=== PATIENT | male | born 1950 | race Caucasian/White ===

== ENCOUNTER 2019-11-19 18:12 | Observation (INO) | payer MEDICARE, OTHER, SELFPAY ==
--- NOTE | ~2019-11-19 | XR_ITS ---
EXAMINATION: XR hand LT min 3V INDICATION: Left hand pain TECHNIQUE: Three views of the left hand are obtained. COMPARISON: None available FINDINGS: There is a nail in the palmar soft tissues of the left hand. The entry point appears to be in the soft tissues between the first and second metacarpals. No definite fracture is identified. 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 IMPRESSION: 1. Nail in the palmar soft tissues of the left hand. No definite fracture identified. Reviewed, dictated and finalized at location A. IMPRESSION: 1. Nail in the palmar soft tissues of the left hand. No definite fracture ident ified.
--- NOTE | ~2019-11-19 | XR_ITS ---
XR surgery orthopedic 11/20/2019 08:45 Indication: Foreign body removal left hand. Procedure: 3 fluoroscopic images of the left hand. 53 seconds of fluoroscopy. Comparison: 11/19/2019 Findings: Interval removal of nail in the left hand. No acute underlying bone or joint abnormality. N o significant soft tissue abnormality. Impression: 1: No acute bone or joint abnormality following foreign body removal. Reviewed, dictated and finalized at location A. Impression: 1: No acute bone or joint abnormality following foreign body removal.
[2019-11-19 18:26] VITALS: BP 71/55; PULSE 56; RESP 18; TEMP 35.7; O2SAT 100
--- NOTE | 2019-11-19 19:39 | ED.UPPEXIN ---
HPI - Extremity Injury (Upper) General Chief Complaint: Extremity Injury, Upper Stated Complaint: L hand injury Time Seen by Provider: 11/19/19 19:38 Source: patient Mode of arrival: ambulatory Limitations: no limitations History of Present Illness HPI narrative: Patient is a 69-year-old male who presents for evaluation of left hand injury. Patient was attaching siding to his house with a nail gun, patient is right-hand dominant, was holding the nail with the right hand when release the nail into his left hand. Patient is denying any numbness. He reports pain in the left hand which is dull, aching in nature and worse with movement. He denies associated chest pain, palpitations, shortness of breath. He states he feels mildly nauseated. Related Data Allergies Allergy/AdvReac Type Severity Reaction Status Date / Time No Known Allergies Allergy Verified 11/19/19 18:43 Review of Systems Review of Systems: Narrative: CONSTITUTIONAL: Denies fever CARDIOVASCULAR: Denies chest pain RESPIRATORY: Denies cough or dyspnea. GASTROINTESTINAL: Denies abdominal pain, nausea, vomiting, or diarrhea. GENITOURINARY: Denies dysuria or hematuria. SKIN: Denies rash or itching. MUSCULOSKELETAL: Denies back pain, reports left hand pain and nail gun injury NEUROLOGIC: Denies headache, numbness, or weakness. [facility] Past Medical History Medical History Gastrocnemius tear Surgical History Surgical History (Updated 11/19/19 @ 19:58 by Susan Chapin MD) S/P Mohs surgery for basal cell carcinoma Social History Social History Smoking status: Current every day smoker Alcohol intake: current Gender identity (if verbalized by the patient): Male Exam Narrative: Exam Narrative: GENERAL: Awake, alert, conversant HEAD: Normocephalic, atraumatic. EYES: PERRLA and EOMI. ENT: Nares clear, no rhinorrhea or epistaxis. Mucous membranes moist. NECK: Supple. CHEST: No respiratory distress, breathing even and non labored HEART: Regular rate, sinus rhythm ABDOMEN:Non distended, non tender EXTREMITIES: Decreased range of motion in the left hand due to pain. Intact sensation median, ulnar, radial nerve distribution. Capillary refill less than 3 seconds. Radial pulses 2+. Patient has full range of motion of the digits without deficit. Pain is with palpation of the dorsal and volar aspect of the left hand. There is a entry defect between the thumb and second digit. No foreign body identified with palpation of this. SKIN: Warm, dry, no rash. NEURO:No focal deficits. Alert and oriented x3 Course Vital Signs Vital signs: Vital Signs Temperature 35.7 C L 11/19/19 18:26 Pulse Rate 56 L 11/19/19 18:26 Respiratory Rate 18 11/19/19 18:26 Blood Pressure 71/55 L 11/19/19 18:26 Pulse Oximetry 100 11/19/19 18:26 Temperature 35.7 C L 11/19/19 18:26 Pulse Rate 68 11/19/19 21:28 Respiratory Rate 16 11/19/19 21:28 Blood Pressure 158/88 H 11/19/19 21:28 Pulse Oximetry 99 11/19/19 21:28 MDM - Extremity Injury (Upper) MDM Narrative Medical decision making narrative: Pt initial vital signs in triage notable for hypotension, but perhaps this is inaccurate as pt is hypertensive at time of my assessment. Denies any chest pain, dizziness. Reports nausea with the pain in left hand. Patient neurovascularly intact at the time of assessment. There is an entry wound defect in the left hand. Nail is resting transversely over the metacarpals in a volar distribution. I am unable to access nail head from entry point. Patient given Ancef, tetanus update, pain medication. Dr. Merrill consulted, will take patient to the OR in the morning. I did obtain labs and EKG for preop. No acute ischemic changes on EKG. Mild leukocytosis likely secondary to pain/leukemoid reaction. Cr mildly increased, no previous available. Patient will be kept
[2019-11-19 19:57] VITALS: BP 109/66; PULSE 66; RESP 16; O2SAT 98
[2019-11-19] MEDS: ONDANSETRON INJ 4 MG/2 ML VIAL IV PUSH (20:02)
[2019-11-19] MEDS: MORPHINE SULFATE (*CRX) 4 MG/ML INJ IV PUSH ×2 (20:03→20:55)
[2019-11-19] MEDS: TETANUS,DIPHTHERIA,AC PERTUSSIS ADULT (0.5 ML) BOOSTRIX IM (20:04)
--- NOTE | 2019-11-19 20:26 | ECG_ITS ---
Measurements Intervals [place] Rate: 72 P: 29 PA: 183 QRS: -24 QRSD: 93 T: 20 QT: 392 QTc: 430 Interpretive Statements SINUS RHYTHM RSR' IN V1 OR V2, CONSIDER RIGHT VENTRICULAR HYPERTROPHY OR RIGHT VCD VOLTAGE CRITERIA FOR LVH MINIMAL Q WAVES- HIGH LATERAL LEADS BASELINE ARTIFACT- I, II, AVR BORDERLINE ECG Electronically Signed On 11-20-2019 7:28:58 CDT by Carrington Toribio D.O.
[2019-11-19 20:47] LABS: Basophils Percent Auto 0.3 % (0.2-1.2); Eosinophils Absolute Auto 0.1 K/mm3 (0-0.3); Eosinophils Percent Auto 0.8 % (0-4.4); Hematocrit 43.9 % (42.0-52.0); Hemoglobin 14.5 g/dL (14.0-18.0); Immature Granulocyte Absolute 0.04 K/mm3 (0.00-0.031); Immature Granulocyte Percent A 0.3 % (0-0.5); Lymphocytes Absolute Auto 0.89 K/mm3 (0.9-3.2); Lymphocytes Percent Auto 7.5 % (18.3-44.2); Mean Corpuscular Hemoglobin 31.7 pg (26-34); Mean Corpuscular Volume 96.1 fl (80-100); Mean Platelet Volume 9.7 fl (7.4-10.4); Monocytes Absolute Auto 0.8 K/mm3 (0.1-0.6); Monocytes Percent Auto 6.7 % (2.6-8.5); Neutrophils Percent Auto 84.4 % (45.5-73.1); Platelet Count Result 277 k/mm3 (150-375); Red Blood Count 4.57 M/mm3 (4.6-6.20); Red Cell Distribution Width 13.2 % (11.5-14.5); White Blood Count 11.8 K/mm3 (4.5-10.0)
[2019-11-19] MEDS: oxyCODONE HCL (*CRX) 5 MG TAB IR PO (20:49)
[2019-11-19 20:57] LABS: Prothrombin Time 12.5 Seconds (11.1-14.7)
[2019-11-19 20:59] LABS: Anion Gap 7 mmol/L (8-16); Blood Urea Nitrogen 20 mg/dL (9-20); Calcium 9.5 mg/dL (8.4-10.2); Carbon Dioxide 26 mmol/L (22-30); Chloride 105 mmol/L (98-107); Estimated CRCL calculation 56 ml/min; Estimated Glomerular Filt Rate 50; Glucose 111 mg/dL (75-110); Potassium 3.8 mmol/L (3.4-5.0); Sodium 138 mmol/L (137-145)
[2019-11-19 21:28] VITALS: BP 158/88; PULSE 68; RESP 16; O2SAT 99
[2019-11-19 21:30] VITALS: BP 161/80; PULSE 78; RESP 16; TEMP 37.1; O2SAT 100; BMI 32.2
--- NOTE | 2019-11-19 21:30 | ADMGEN ---
This patient, Kush Abreu, was admitted to 3 [facility] Surg Room 303-01. Patient/family oriented to hospital policies and general routines including ID bracelet, bed and alarms, visiting hours, pain management, procedures, bathroom and other care routines, personal items, smoking policy, room service/diet, and visiting hours. Valuables list has been completed. Information on how to activate the Rapid Response Team has been discussed. Patient/Family are encouraged to report perceived risks to care and to ask questions if they do not understand what they are told or what they should do.
[2019-11-19] MEDS: SODIUM CHLORIDE 0.9% IV 1,000 ML 125 ML IV CONT (22:36)
[2019-11-20] VITALS (10 sets, daily range): BP systolic 150–169; BP diastolic 75–95; PULSE 58–83; RESP 12–20; TEMP 36.1–37.1; O2SAT 95–100
--- NOTE | 2019-11-20 07:15 | PM.IMHP ---
H&P: HPI History of Present Illness Date/Time: 11/20/19 07:15 Chief complaint: Nail gun injury left hand, Foreign body Narrative: Kush Abreu is a 69 year old right-hand dominant male who presents with a left hand injury. He was attaching a slide to his house with a nail gun at which time he started fall and a nail shot out of the gun went caught across to his left palmar aspect entering from radial to ulnar. Immediately noted the could see the end of it and proceeded to the emergency room for evaluation. Emergency room radiographs were taken. Findings: IMPRESSION: 1. Nail in the palmar soft tissues of the left hand. No definite fracture identified. We have monitored until operating room is available. He states doing well. No complaints. No fevers or chills. No nausea vomiting. Normal sensation in the digits. He is able to move the hand however has significant pain with any motion. He states he has felt well recently. No COVID-19 symptoms. Review of Systems Review of Systems: All systems reviewed & are unremarkable except as noted in HPI and below PMFSH Past Medical History Medical History Gastrocnemius tear Surgical History Surgical History (Updated 11/19/19 @ 19:58 by Susan Chapin MD) S/P Mohs surgery for basal cell carcinoma Social History Social History Smoking packs per day: 1 Smoking cigarettes per day: 20.0 Years smoked: 20 Smoking pack-years: 20.00 Smoking status: Former smoker Tobacco type: cigarettes Alcohol intake: current Drinks per week: 1 Substance use: never Gender identity (if verbalized by the patient): Male Spiritual care concerns: No Meds Home Medications and Allergies Home Medications Medication Instructions Recorded Confirmed Type diclofenac sodium 75 mg PO BID PRN 11/19/19 11/19/19 History lisinopril 5 mg PO DAILY 11/19/19 11/19/19 History omeprazole 40 mg PO BID 11/19/19 11/19/19 History simvastatin 20 mg PO HS 11/19/19 11/19/19 History Allergies Allergy/AdvReac Type Severity Reaction Status Date / Time No Known Allergies Allergy Verified 11/19/19 18:43 Vital Signs Vital Signs - 24 hr 11/19/19 18:26 11/19/19 19:57 11/19/19 21:28 Temperature 35.7 C L Pulse Rate 56 L 66 68 Respiratory Rate 18 16 16 Blood Pressure 71/55 L 109/66 158/88 H Pulse Oximetry 100 98 99 11/19/19 21:30 11/20/19 06:00 Temperature 37.1 C 37.1 C Pulse Rate 78 77 Respiratory Rate 16 16 Blood Pressure 161/80 H 166/92 H Pulse Oximetry 100 99 Exam Const: General: comfortable, no acute distress, alert and awake; No acute distress Orientation/consciousness: oriented to person HENMT: Head: normal to inspection Ears: external ears normal General nose exam: Normal external nose present Face and sinus: normal facial exam Eyes: General: appearance normal, both eyes and all related structures Periorbital: periorbital findings normal Eyelids: eyelids normal Conjunctivae: conjunctivae normal Neck: Neck: normal visual inspection Chest: Chest palpation & inspection: normal inspection of the chest Resp: Effort & Inspection: normal respiratory effort and able to speak in complete sentences GI: Inspection: normal to inspection Neuro: General: oriented to person Extrem: Other: Left volar radial hand with clear entry point. He has normal sensation on the radial and ulnar aspect of each digit. He is able to flex and extend the PIP and DIP joints. No signs of infection. Good color and capillary refill. Otherwise normal hand examination. Psych: Appearance: grossly normal Mental Status: mental status grossly normal H&P: Results Labs Labs: Short CBC 11/19/19 Range/Units 20:41 WBC 11.8 H (4.5-10.0) K/mm3 Hgb 14.5 (14.0-18.0) g/dL Hct 43.9 (42.0-52.0) % Plt Count 277 (150-375) k/mm3 [facility] 11/19/19 20:41
--- NOTE | 2019-11-20 07:23 | WPDHPUPDATE1 ---
History and Physical Update Update Date/Time: 11/20/19 07:23 History and Physical has been reviewed, including an updated exam of the patient. There are NO changes in the patient's condition. Risks, benefits, and alternatives have been discussed and questions answered. Patient agrees to proceed with procedure.
--- NOTE | 2019-11-20 07:24 | PC.NURSE ---
To OR per bed, IV SL and patent. Report given to Joanne at bedside.
--- NOTE | 2019-11-20 07:24 | WPDANESEPPF ---
Anes - Initial Pre Proc Eval Procedure: Operation Date: 11/20/19 07:30 Proposed Procedures p FOREIGN BODY REMOVAL LEFT HAND - London Merrill MD Date/Time: 11/20/19 07:24 Surgeon: London Merrill MD Pre Op Diagnosis: Nail gun injury left hand, Foreign body Patient Data Age: 69 Gender: M Height: 1.83 m Weight: 107.9 kg Last Vital Signs Temp 37.1 C 11/20/19 06:00 Pulse 77 11/20/19 06:00 Resp 16 11/20/19 06:00 BP 166/92 H 11/20/19 06:00 Pulse Ox 99 11/20/19 06:00 Allergies Allergy/AdvReac Type Severity Reaction Status Date / Time No Known Allergies Allergy Verified 11/19/19 18:43 Home Medications Medication Instructions Recorded Confirmed Type diclofenac sodium 75 mg PO BID PRN 11/19/19 11/19/19 History lisinopril 5 mg PO DAILY 11/19/19 11/19/19 History omeprazole 40 mg PO BID 11/19/19 11/19/19 History simvastatin 20 mg PO HS 11/19/19 11/19/19 History Laboratory Tests 11/19/19 11/19/19 11/19/19 20:41 20:41 20:41 WBC 11.8 K/mm3 H K/mm3 (4.5-10.0) RBC 4.57 M/mm3 L M/mm3 (4.6-6.20) Hgb 14.5 g/dL g/dL (14.0-18.0) Hct 43.9 % % (42.0-52.0) MCV 96.1 fl fl (80-100) MCH 31.7 pg pg (26-34) MCHC 33.0 g/dl g/dl (32-36) RDW 13.2 % % (11.5-14.5) Plt Count 277 k/mm3 k/mm3 (150-375) MPV 9.7 fl fl (7.4-10.4) Immature Gran % (Auto) 0.3 % % (0-0.5) Neut % (Auto) 84.4 % H % (45.5-73.1) Lymph % (Auto) 7.5 % L % (18.3-44.2) Am[place] % (Auto) 6.7 % % (2.6-8.5) Eos % (Auto) 0.8 % % (0-4.4) Baso % (Auto) 0.3 % % (0.2-1.2) Lymph # (Auto) 0.89 K/mm3 L K/mm3 (0.9-3.2) [place] # (Auto) 0.8 K/mm3 H K/mm3 (0.1-0.6) Eos # (Auto) 0.1 K/mm3 K/mm3 (0-0.3) Baso # (Auto) 0.0 K/mm3 K/mm3 (0.0-0.1) Abs Immat Gran (auto) 0.04 K/mm3 H K/mm3 (0.00-0.031) Absolute Neuts (auto) 10.0 K/mm3 H K/mm3 (1.3-6.7) Absolute Nucleated RBC 0.0 K/mm3 K/mm3 (0.0-0.012) Nucleated RBC % 0.0 % % (0.0-0.2) PT 12.5 Seconds Seconds (11.1-14.7) INR 1.0 APTT 20.0 SECONDS L SECONDS (22.3-36.8) Sodium 138 mmol/L mmol/L (137-145) Potassium 3.8 mmol/L mmol/L (3.4-5.0) Chloride 105 mmol/L mmol/L (98-107) Carbon Dioxide 26 mmol/L mmol/L (22-30) Anion Gap 7 mmol/L L mmol/L (8-16) BUN 20 mg/dL mg/dL (9-20) Creatinine 1.40 mg/dL H mg/dL (0.7-1.3) Estim Creat Clear Calc 56 ml/min ml/min Estimated GFR 50 L (59 - ) Glucose 111 mg/dL H mg/dL (75-110) Calcium 9.5 mg/dL mg/dL (8.4-10.2) Patient hx anesthesia problems: none Family hx anesthesia problems: none [facility] Past Medical History Medical History Gastrocnemius tear Surgical History Surgical History (Updated 11/19/19 @ 19:58 by Susan Chapin MD) S/P Mohs surgery for basal cell carcinoma Social History Social History Smoking packs per day: 1 Smoking cigarettes per day: 20.0 Years smoked: 20 Smoking pack-years: 20.00 Smoking status: Former smoker Tobacco type: cigarettes Alcohol intake: current Drinks per week: 1 Substance use: never Gender identity (if verbalized by the patient): Male Spiritual care concerns: No Anes - Eval Final PreProcedure Day of Procedure 11/20/19 07:24 Patient weight: obese Heart: regular rate and rhythm Lungs: clear to auscultation and normal air movement Airway: Mallampati scale class II Neurological: alert and oriented Last oral intake: >/= 8 hours ASA classification: II Emergent: no Anesthetic plan: proceed Anesthesia type and monitoring: general GIVS Informed Consent: T
--- NOTE | 2019-11-20 07:45 | PM.PROC ---
Procedure Note - Detailed Date of procedure: 11/20/19 Pre-op diagnosis: Nail gun injury left hand, Foreign body Post-op diagnosis: same Procedure performed: Removal foreign body right hand. Description of procedure: Patient was marked in the preoperative holding area with his verification. He was taken to the operating room placed supine on the operating room table. Anesthesia was provided by anesthesiology and prepped and draped in a standard sterile fashion. 1% lidocaine and 0.25% Marcaine with epinephrine was used anesthetize locally. A attempted to remove through the puncture site but was unable. I did this with the assistance fluoroscopy. I marked out the location over the middle finger metacarpal where the nail was crossing. 1% lidocaine and 0.25% Marcaine with epinephrine was used anesthetize here as well as well as a median nerve block. Esmarch was used to exsanguinate the arm and tourniquet inflated to 250 mmHg. A 15 blade used to make an incision I continued dissection down protecting the neurovascular bundle. Lumbricals were identified protected as well as flexor tendons. The nail was identified after several attempts I was able to dislodge it from the bone as it does appear that it was in fact into the 4th metacarpal bone. Once this was completed was able to easily bring it back through its original home with no evidence of neurovascular tendon injury. I irrigated copiously with bacitracin containing saline solution. I closed the palmar incision with 4-0 nylon horizontal mattress. I left the puncture site open. Xeroform fluffs and an Glenn were used for final dressing. He tolerated well. Anesthesia: GLMA Surgeon: London Merrill MD Estimated blood loss (mL): 2 Drains: No Packing: No Pathology: none sent Complications: No immediate complications Condition: stable Disposition: PACU Findings: Nail was identified. Radiographs were taken after to ensure no retained material.
[2019-11-20] MEDS: ceFAZolin SODIUM 1 GM VIAL 2 GM IV PUSH (07:46)
[2019-11-20] MEDS: LIDO 1%/EPINEPHRINE 1:100,000 20 ML VIAL INFILTRATE (08:04)
[2019-11-20] MEDS: LACTATED RINGERS 1,000 ML 30 ML IV CONT (08:36)
[2019-11-20] MEDS: fentaNYL CITRATE INJ (*CRX) 100 MCG/2 ML VIAL 25 MCG IV PUSH ×4 (08:40→09:07)
--- NOTE | 2019-11-20 08:42 | PM.DS ---
DS: Admitting Diagnosis Admitting Diagnosis Admitting Diagnosis: Nail gun injury left hand, Foreign body DS: Discharge Diagnosis Discharge Diagnosis (1) Injury of hand by nail gun: Qualifiers: Encounter type: initial encounter Laterality: left Qualified Code(s): S69.92XA - Unspecified injury of left wrist, hand and finger(s), initial encounter; W29.4XXA - Contact with nail gun, initial encounter Code(s): S69.90XA - Unspecified injury of unspecified wrist, hand and finger(s), initial encounter; W29.4XXA - Contact with nail gun, initial encounter Status: Acute Assessment and Plan: Nail was removed intraoperatively. He tolerated well. DS: Summary Time Spent with Patient Time attestation: Total time spent providing and/or coordinating discharge services: Fifteen Exam Const: General: comfortable, no acute distress, alert and awake; No acute distress Orientation/consciousness: oriented to person HENMT: Head: normal to inspection Ears: external ears normal General nose exam: Normal external nose present Face and sinus: normal facial exam Eyes: General: appearance normal, both eyes and all related structures Periorbital: periorbital findings normal Eyelids: eyelids normal Conjunctivae: conjunctivae normal Neck: Neck: normal visual inspection Chest: Chest palpation & inspection: normal inspection of the chest Resp: Effort & Inspection: normal respiratory effort and able to speak in complete sentences GI: Inspection: normal to inspection Neuro: General: oriented to person Extrem: Other: left hand dressing in place postoperative. Psych: Appearance: grossly normal Mental Status: mental status grossly normal DS: Data Data Completed and Pending Labs on day of discharge: Labs from last 24 hours 11/19/19 11/19/19 11/19/19 20:41 20:41 20:41 WBC 11.8 H RBC 4.57 L Hgb 14.5 Hct 43.9 MCV 96.1 MCH 31.7 MCHC 33.0 RDW 13.2 Plt Count 277 MPV 9.7 Immature Gran % (Auto) 0.3 Neut % (Auto) 84.4 H Lymph % (Auto) 7.5 L Richardson % (Auto) 6.7 Eos % (Auto) 0.8 Baso % (Auto) 0.3 Lymph # (Auto) 0.89 L Richardson # (Auto) 0.8 H Eos # (Auto) 0.1 Baso # (Auto) 0.0 Abs Immat Gran (auto) 0.04 H Absolute Neuts (auto) 10.0 H Absolute Nucleated RBC 0.0 Nucleated RBC % 0.0 PT 12.5 INR 1.0 APTT 20.0 L Sodium 138 Potassium 3.8 Chloride 105 Carbon Dioxide 26 Anion Gap 7 L BUN 20 Creatinine 1.40 H Estim Creat Clear Calc 56 Estimated GFR 50 L Glucose 111 H Calcium 9.5 Discharge Plan Discharge Discharging Clinician: London Merrill Anticipated Discharge Date/Time: 11/20/19 08:39 Patient Disposition: Home, Self-Care Activity: may shower Diet: regular Discharge Instructions: POST OPERATIVE DISCHARGE INSTRUCTIONS FOR Hand Surgery LONDON MERRILL M.D. [facility] [address] [place] [address] [address] for 24 hours after anesthesia and while you are taking pain medication. Take all prescribed medication as directed Diet as tolerated. No lifting or activity that raises blood pressure for 48 hours. Regular walking / ambulation. No showering until directed to. Once you shower do not take pain medication before showering as the combination of medication and heat may cause you to feel dizzy or pass out. No pools or tubs for 2 weeks. Call with any questions or concerns. Dressing Care: May remove in 24 hours and shower. If you have any questions or concerns, please call the office . If it is after hours you will be directed to the area loss prevention manager exchange. Shortness of breath, chest pain, or other medical emergency dial 911 / proceed to the Emergency Room. Patient Instructions: Antibiotic Form Stand Alone Forms: General Discharge Information Follow-up/Referrals: London Merrill,
[2019-11-20] MEDS: HYDROmorphone HCL INJ (*CRX) 1 MG/ML SYR 0.25 MG IV PUSH ×2 (09:11→09:15)
--- NOTE | 2019-11-20 09:40 | PC.NURSE ---
Patient brought down to OR at 0715.
--- NOTE | 2019-11-20 09:40 | PC.NURSE ---
Patient arrived in room 303 at 0934 from OR.
[2019-11-20] MEDS: HYDROcodone/acetaminophen (*CRX) 5-325 MG TABLET 1 TAB PO (10:13)
== END 2019-11-20 13:40 | disposition home or self-care (01) ==
LOC: ANHED 20:42 → ANH3MEDSUR 20:57
PROVIDERS: Admitting Provider Surgery Plastic and Reconstructive Surgery; Emergency Provider Emergency Medicine; PCP Internal Medicine Geriatric Medicine; Visit Provider Surgery Plastic and Reconstructive Surgery
PROC: (CPT 20103; principal; 2019-11-20 07:30)
DX: S61.243A Puncture wound with foreign body of left middle finger without damage to nail, initial encounter (principal); W29.4XXA Contact with nail gun, initial encounter; F17.210 Nicotine dependence, cigarettes, uncomplicated; I10 Essential (primary) hypertension; E78.5 Hyperlipidemia, unspecified; K21.9 Gastro-esophageal reflux disease without esophagitis; Z23 Encounter for immunization
CPT/HCPCS: 20103; 36415; 73130; 80048; 85025; 85610; 85730; 90471; 90715; 93005; 96365; 96375; 96376; 99285; A9270; G0378; J0131; J0690; J1170; J2270; J2405; J2704; J3010; J7030; J7120